=== PATIENT | female | born 1990 | race Caucasian/White ===

== ENCOUNTER 2016-07-15 11:36 | Emergency (ER) | payer BC, OTHER ==
[~2016-07-15] VITALS: Wt 89.0 kg
[2016-07-15] MEDS ORDERED: ONDANSETRON 4 MG INJ IV STA (13:36)
[2016-07-15] MEDS ORDERED: SOD CHLORIDE 0.9% 1,000 ML IV STA (13:36)
[2016-07-15] MEDS ORDERED: ACETAMINOPHEN 325 MG TAB PO STA (13:36)
--- NOTE | 2016-07-15 13:44 | ERD ---
ER Documentation Chief Complaint Date/Time DATE: 07/15/16 TIME: 13:40 Chief Complaint abd pain and diarrhea and nausea . no vag bleed 5 wks preg HPI Otherwise healthy 26-year-old female estimated at 8 weeks gestation presents to the emergency department with a 1 day history of gradually worsening 5 out of 10 burning abdominal pain with associated nausea, vomiting, and diarrhea since last night. Patient states she ate dinner around 7 PM and started experiencing nausea and abdominal pain around 11 PM. since that time she states she has vomited 4 times and has been unable to keep food down. Patient denies any vaginal bleeding, dysuria, flank pain, fever, chills, or vaginal discharge. ROS All systems reviewed and are negative except as per history of present illness. Allergies Allergies: Coded Allergies: No Known Drug Allergy (Verified Allergy, Unknown, 06/03/08) Physical Exam Vitals Vital Signs Date Time Temp Pulse Resp B/P Pulse Ox O2 Delivery O2 Flow Rate FiO2 07/15/16 11:45 98.8 76 20 138/77 100 Physical Exam Const: Well-developed, well-nourished, in no acute distress Head: Atraumatic Eyes: Normal Conjunctiva ENT: Normal External Ears, Nose and Mouth. Neck: Full range of motion..~ No meningismus. Resp: Clear to auscultation bilaterally Cardio: Regular rate and rhythm, no murmurs Abd: Mild diffuse tenderness to palpation of upper quadrant. Negative McBurney's point tenderness. abdomen soft, non non distended. Normal bowel sounds Skin: No petechiae or rashes Back: No midline or flank tenderness Ext: No cyanosis, or edema Neur: Awake and alert Psych: Normal Mood and Affect Result Diagram: 07/15/16 1353 07/15/16 1353 Results 24 hrs Laboratory Tests Test 07/15/16 13:45 07/15/16 13:53 Urine Color LT. YELLOW Urine Clarity CLEAR Urine pH 7.0 Urine Specific [place] 1.020 Urine Ketones NEGATIVE Urine Nitrite NEGATIVE Urine Bilirubin NEGATIVE Urine Urobilinogen 0.2 E.U./dL Urine Leukocyte Esterase 2+ Urine Microscopic RBC 0-2/HPF Urine Microscopic WBC 2-5/HPF Urine Squamous Epithelial Cells FEW Urine Bacteria FEW Urine Hemoglobin TRACE Urine Glucose NEGATIVE% Urine Total Protein NEGATIVE White Blood Count 9.310^3/ul Red Blood Count 4.4810^6/ul Hemoglobin 13.6g/dl Hematocrit 41.1% Mean Corpuscular Volume 91.7fl Mean Corpuscular Hemoglobin 30.4pg Mean Corpuscular Hemoglobin Concent 33.1g/dl Red Cell Distribution Width 12.7% Platelet Count 13920^3/UL Mean Platelet Volume 9.5fl Neutrophils % 61.9% Lymphocytes % 31.5% Monocytes % 5.8% Eosinophils % 0.3% Basophils % 0.3% Nucleated Red Blood Cells % 0.0/100WBC Neutrophils # 5.810^3/ul Lymphocytes # 2.910^3/ul Monocytes # 0.510^3/ul Eosinophils # 0.010^3/ul Basophils # 0.010^3/ul Nucleated Red Blood Cells # 0.010^3/ul Prothrombin Time 13.0Sec Prothrombin Time Ratio 1.0 INR International Normalized Ratio 0.98 Activated Partial Thromboplast Time 28.6Sec Sodium Level 137mmol/L Potassium Level 3.7mmol/L Chloride Level 102mmol/L Carbon Dioxide Level 26mmol/L Anion Gap 13 Blood Urea Nitrogen 5mg/dl Creatinine 0.52mg/dl Glucose Level 80mg/dl Calcium Level 9.3mg/dl Total Bilirubin 0.3mg/dl Direct Bilirubin 0.00mg/dl Indirect Bilirubin 0.3mg/dl Aspartate Amino Transf (AST/SGOT) 18IU/L Alanine Aminotransferase (ALT/SGPT) 18IU/L Alkaline Phosphatase 60IU/L Total Protein 7.7g/dl Albumin 4.3g/dl Globulin 3.40g/dl Albumin/Globulin Ratio 1.26 Lipase 71U/L Beta HCG, Quantitative 72801.0mIU/ml Current Medications Medications (Trade) Dose Ordered Sig/Jenifer Route PRN Reason Start Time Stop Time Status Last Admin Dose Admin Sodium Chloride (NS) 1,000 ml @ 1,000 mls/hr Q1H STAT IV 07/15/16 13:36 07/15/16 14:35 DC 07/15/16 13:55 Acetaminophen (Tylenol Tab) 650 mg ONCE STAT PO 07/15/16 13:36 07/15/16 13:40 DC 07/15/16 13:56 Ondansetron HCl (Zofran Inj) 4 mg ONCE STAT IV 07/15/16 13:36 07/15/16 13:40 DC 07/15/16 13:55 Procedures/MDM PROCEDURE: US OB. CLINICAL INDICATION: pelvic pain TECHNIQUE: Transabdominal views of the pelvis are available for review. COMPARISON: No prior studies are available for comparison. FINDINGS: There is a single intrauterine gestation with the crown-rump length measuring 1.4 cm and the gestational sac measures 2.9 cm, corresponding to a gestational age of 7 weeks and 6 days. The heart rate is noted at 168 bpm. The ovaries are normal in size and echogenicity. Normal Doppler flow is identified in both ovaries. The right ovary measures 3.2 x 2.0 x 2.0 cm. The left ovary measures 2.7 x 1.3 x 1.4 cm. There is no free fluid. RPTAT: AA IMPRESSION: Single live intrauterine with an estimated gestational age of 7 weeks and 6 days, based on ultrasound measurements. FIONA based on ultrasound measurements is 02/25/17. .Dwight Sweet MD, MD Date Time Electronically viewed and signed by .Dwight Sweet MD, on 07/15/2016 14: 37 .S/ CC: MARIELOS HOWELL PA-C Patient received a bolus of fluids as well as Zofran and Tylenol while in the emergency department and states improvement of symptoms. Vital signs were reviewed. Patient is afebrile. Patient is not hypoxic. CBC showed no evidence of systemic infection or severe anemia. BMP showed no evidence of electrolyte abnormalities, severe acidosis, alkalosis , renal failure, or liver disease. Lipase showed no evidence of acute pancreatitis. UA revealed evidence of 2+ leukocyte esterase and [place] bacteria[place] [address] Ultrasound revealed single live intrauterine estimated at 7 weeks. Clinical examination and laboratory testing revealed evidence of acute urinary tract infection. At this time I have low suspicion for acute cholecystitis, appendicitis, threatened , ovarian torsion, tubo-ovarian abscess, bowel obstruction. Based on patient's history of present illness and physical examination the decision was made to discharge. The patient was re-evaluated after ED treatment and stabilizing measures, and symptoms have improved. There is no evidence of life threatening injuries or illnesses at this time. On re-examination, patient resting in no distress, stable vital signs, reports feeling better and safe for discharge with outpatient follow up with PMD in 1-2 days. Patient given return precautions. Departure Diagnosis: Primary Impression: Abdominal pain Abdominal location: upper abdomen, unspecified Qualified Code: R10.10 - Pain of upper abdomen Additional Impression: Nausea & vomiting Vomiting type: unspecified Vomiting Intractability: non-intractable Qualified Code: R11.2 - Non-intractable vomiting with nausea, unspecified vomiting type MARIELOS HOWELL PA-C Jul 15, 2016 13:44
[2016-07-15 14:10] LABS: ADD SCAN DIFF NO
[2016-07-15 14:16] LABS: ADD UMIC YES; URINE BILIRUBIN (Dip) NEGATIVE (NEGATIVE); URINE BLOOD (Dip) TRACE (NEGATIVE); URINE COLOR LT. YELLOW (YELLOW); URINE GLUCOSE (Dip) NEGATIVE (NEGATIVE); URINE KETONES (Dip) NEGATIVE (NEGATIVE); URINE LEUKOCYTE ESTERASE (Dip) 2+ (NEGATIVE); URINE NITRITE (Dip) NEGATIVE (NEGATIVE); URINE TOTAL PROTEIN (Dip) NEGATIVE (NEGATIVE); URINE UROBILINOGEN (Dip) 0.2 E.U./dL (0.1-1.0)
[2016-07-15 14:21] LABS: BACTERIA,URINE FEW; SQUAMOUS EPITHELIAL CELL,UR FEW; URINE RBCS 0-2 /HPF (0)
[2016-07-15 14:24] LABS: ALBUMIN 4.3 g/dl (3.3-4.9); INR 0.98; POTASSIUM 3.7 mmol/L (3.5-5.1)
[2016-07-15 14:25] LABS: PARTIAL THROMBOPLASTIN TIME 28.6 Sec (25.0-35.0)
[2016-07-15 14:27] LABS: BILIRUBIN,INDIRECT 0.3 mg/dl (0-1.1); BILIRUBIN,TOTAL 0.3 mg/dl (0.2-1.3); CALCIUM 9.3 mg/dl (8.4-10.2); CREATININE 0.52 mg/dl (0.44-1.00)
--- NOTE | 2016-07-15 14:37 | RADRPT ---
PROCEDURE: US OB. CLINICAL INDICATION: pelvic pain TECHNIQUE: Transabdominal views of the pelvis are available for review. COMPARISON: No prior studies are available for comparison. FINDINGS: There is a single intrauterine gestation with the crown-rump length measuring 1.4 cm and the gestat ional sac measures 2.9 cm, corresponding to a gestational age of 7 weeks and 6 days. The heart rate is noted at 168 bpm. The ovaries are normal in size and echogenicity. Normal Doppler flow is identified in both ovaries. The right ovary measures 3.2 x 2.0 x 2.0 cm. The left ovary measures 2.7 x 1.3 x 1.4 cm. There is no free fluid. RPTAT: AA IMPRESSION: Single live intrauterine with an estimated gestational age of 7 weeks and 6 days, based on ultrasound measurements. FIONA based on ultrasound measurements is 02/25/17. .Dwight Sweet MD, MD Date Time Electronically viewed and signed by .Dwight Sweet MD, on 07/15/2016 14:37 .S/
[2016-07-15 14:54] LABS: BASOPHILS % 0.3 % (0.0-2.0); EOSINOPHILS % 0.3 % (0.0-7.0); HEMATOCRIT 41.1 % (37.0-47.0); HEMOGLOBIN 13.6 g/dl (12.0-16.0); LYMPHOCYTES # 2.9 10^3/ul (0.8-2.9); LYMPHOCYTES % 31.5 % (15.0-51.0); MEAN CORPUSCULAR HEMOGLOBIN 30.4 pg (29.0-33.0); MEAN CORPUSCULAR HGB CONC 33.1 g/dl (32.0-37.0); MEAN CORPUSCULAR VOLUME 91.7 fl (82.0-101.0); MEAN PLATELET VOLUME 9.5 fl (7.4-10.4); MONOCYTE # 0.5 10^3/ul (0.3-0.9); MONOCYTES % 5.8 % (0.0-11.0); NEUTROPHIL # 5.8 10^3/ul (1.6-7.5); NEUTROPHILS % 61.9 % (39.0-77.0); PLATELET COUNT 303 10^3/UL (140-415); RED BLOOD COUNT 4.48 10^6/ul (4.20-5.40); RED CELL DISTRIBUTION WIDTH 12.7 % (11.5-14.5); WHITE BLOOD COUNT 9.3 10^3/ul (4.8-10.8)
[2016-07-15 15:06] LABS: ALBUMIN/GLOBULIN RATIO 1.26
[2016-07-15 15:25] LABS: TOTAL PROTEIN 7.7 g/dl (6.1-8.1)
[2016-07-15] MEDS ORDERED: ELEC100080 PO (15:59)
[2016-07-15] MEDS ORDERED: CEPH-443 PO (15:59)
[2016-07-15] MEDS ORDERED: ONDA4TAB14 PO (15:59)
== END 2016-07-15 16:20 | disposition home or self-care (01) ==
LOC: FTE 11:36
DX: O26.891 Other specified pregnancy related conditions, first trimester (principal); R10.10 Upper abdominal pain, unspecified; O21.9 Vomiting of pregnancy, unspecified; R10.2 Pelvic and perineal pain; Z3A.01 Less than 8 weeks gestation of pregnancy
CPT/HCPCS: 36415; 76801; 80053; 81001; 81003; 83690; 84702; 85025; 85610; 85730; 96374; J2405; J7030; Z7502; Z7610

== ENCOUNTER 2016-12-03 00:20 | Outpatient (CLI) | payer MEDICAID ==
[~2016-12-03] VITALS: Ht 165.1 cm; Wt 96.6 kg
[~2016-12-03 00:20] MED LIST: CEPH-443 PO; ELEC100080 PO; ONDA4TAB14 PO
[2016-12-03 01:17] VITALS: BP 99/58; PULSE 77; RESP 16
[2016-12-03] MEDS ORDERED: ACETAMINOPHEN 500 MG TAB PO STA (01:29)
--- NOTE | 2016-12-03 02:53 | RADRPT ---
PROCEDURE: US OB biophysical profile. CLINICAL INDICATION: labor TECHNIQUE: Multiple sonographic images of the pelvis were obtained. The images were reviewed on a PACS workstation. COMPARISON: No pertinent prior examinations were submitted for comparison. FINDINGS: There is a single viable intrauterine gestation. Cardiac activity is present with 159 beats per min [place]. There is a cephalic presentation. The placenta is posterior, grade 1 appearance. There is a normal amount of amniotic fluid with an KORI = 12.8 cm. The cervix is long and closed, measuring up to 5.9 cm. Biophysical profile: movement 2/2 tone 2/2. breathing 2/2 KORI 2/2 Total 11/23 IMPRESSION: Normal biophysical profile. RPTAT: HIKT . .Aston Nugent MD, Date Time Electronically viewed and signed by .Aston Nugent MD, on 12/03/2016 02:52 .T/
[2016-12-03 03:12] LABS: BASOPHILS % 0.4 % (0.0-2.0); EOSINOPHILS # 0.1 10^3/ul (0.0-0.5); EOSINOPHILS % 0.7 % (0.0-7.0); HEMATOCRIT 30.8 % (37.0-47.0); HEMOGLOBIN 10.4 g/dl (12.0-16.0); LYMPHOCYTES # 1.5 10^3/ul (0.8-2.9); LYMPHOCYTES % 20.4 % (15.0-51.0); MEAN CORPUSCULAR HEMOGLOBIN 30.7 pg (29.0-33.0); MEAN CORPUSCULAR HGB CONC 33.8 g/dl (32.0-37.0); MEAN CORPUSCULAR VOLUME 90.9 fl (82.0-101.0); MEAN PLATELET VOLUME 9.2 fl (7.4-10.4); MONOCYTE # 0.9 10^3/ul (0.3-0.9); MONOCYTES % 12.5 % (0.0-11.0); NEUTROPHILS % 65.2 % (39.0-77.0); PLATELET COUNT 234 10^3/UL (140-415); RED BLOOD COUNT 3.39 10^6/ul (4.20-5.40); RED CELL DISTRIBUTION WIDTH 13.9 % (11.5-14.5); WHITE BLOOD COUNT 7.4 10^3/ul (4.8-10.8)
[2016-12-03 03:29] LABS: ALBUMIN 3.5 g/dl (3.3-4.9); ALBUMIN/GLOBULIN RATIO 1.2; BILIRUBIN,INDIRECT 0.2 mg/dl (0-1.1); BILIRUBIN,TOTAL 0.2 mg/dl (0.2-1.3); CALCIUM 8.8 mg/dl (8.4-10.2); CREATININE 0.45 mg/dl (0.44-1.00); POTASSIUM 3.3 mmol/L (3.5-5.1); TOTAL PROTEIN 6.4 g/dl (6.1-8.1)
[2016-12-03 03:39] LABS: ADD UMIC YES; UR ASCORBIC ACID NEGATIVE (NEGATIVE); UR BILIRUBIN (Dip) NEGATIVE (NEGATIVE); UR BLOOD (Dip) NEGATIVE (NEGATIVE); UR CLARITY CLEAR (CLEAR); UR COLOR YELLOW (YELLOW); UR GLUCOSE (Dip) NEGATIVE (NEGATIVE); UR KETONES (Dip) 1+ mg/dL (NEGATIVE); UR LEUKOCYTE ESTERASE (Dip) 1+ Leu/ul (NEGATIVE); UR NITRITE (Dip) NEGATIVE (NEGATIVE); UR RBC 0 /HPF (0-5); UR SQUAMOUS EPITHELIAL CELL FEW /HPF (FEW); UR TOTAL PROTEIN (Dip) NEGATIVE (NEGATIVE); UR UROBILINOGEN (Dip) NEGATIVE (NEGATIVE)
--- NOTE | 2016-12-03 06:16 | PN ---
Triage Information Date/Time 12/03/16 Reason for visit: Abd/pelvic pain Weeks of Gestation 30w /Para Diabetes: none Hypertention: none Additional information headahe and bodyahe denies any [place] vomiting\ no urinary sx no coughing or SOB Objective Vital Signs Date Time Temp Pulse Resp B/P Pulse Ox O2 Delivery O2 Flow Rate FiO2 12/03/16 01:17 98.8 77 16 99/58 Room Air Heart Rate: 150's Contractions: None Exam CVA neg for tenderness abdomen no tenderness Results/Medications Result Diagram: 12/03/16 0234 12/03/16 0234 Results 24 hrs Laboratory Tests Test 12/03/16 01:00 12/03/16 02:34 Urine Color YELLOW Urine Clarity CLEAR Urine pH 7.0 Urine Specific [place] 1.010 Urine Ketones 1+ H Urine Nitrite NEGATIVE Urine Bilirubin NEGATIVE Urine Urobilinogen NEGATIVE Urine Leukocyte Esterase 1+ H Urine Microscopic RBC 0 Urine Microscopic WBC 2 Urine Squamous Epithelial Cells FEW Urine Hemoglobin NEGATIVE Urine Glucose NEGATIVE Urine Total Protein NEGATIVE White Blood Count 7.4 # Red Blood Count 3.39 #L Hemoglobin 10.4 #L Hematocrit 30.8 #L Mean Corpuscular Volume 90.9 Mean Corpuscular Hemoglobin 30.7 Mean Corpuscular Hemoglobin Concent 33.8 Red Cell Distribution Width 13.9 Platelet Count 234 # Mean Platelet Volume 9.2 Neutrophils % 65.2 Lymphocytes % 20.4 Monocytes % 12.5 H Eosinophils % 0.7 Basophils % 0.4 Nucleated Red Blood Cells % 0.0 Neutrophils # (Manual) 5 Lymphocytes # 1.5 Monocytes # 0.9 Eosinophils # 0.1 Basophils # 0.0 Nucleated Red Blood Cells # 0.0 Sodium Level 136 Potassium Level 3.3 L Chloride Level 104 Carbon Dioxide Level 22 Anion Gap 13 Blood Urea Nitrogen 3 L Creatinine 0.45 Glucose Level 79 Calcium Level 8.8 Total Bilirubin 0.2 Direct Bilirubin 0.00 Indirect Bilirubin 0.2 Aspartate Amino Transf (AST/SGOT) 41 Alanine Aminotransferase (ALT/SGPT) 37 Alkaline Phosphatase 59 Total Protein 6.4 Albumin 3.5 Globulin 2.90 Albumin/Globulin Ratio 1.20 Medications tylenol 1000mg Imaging Results BPP 11/23 KORI 12.8 CVL 5.9 Disposition: Discharge Assessment/Plan A IUP 30w with headache SX resolved P discharge home f/u at [facility] BRANDIN CLAY MD Dec 03, 2016 06:16
== END 2016-12-03 05:45 | disposition home or self-care (01) ==
LOC: L-D 00:20 → OBT 00:20
PROVIDERS: ATTEND Obstetrics & Gynecology
DX: O26.893 Other specified pregnancy related conditions, third trimester (principal); Z3A.30 30 weeks gestation of pregnancy; R10.2 Pelvic and perineal pain
CPT/HCPCS: 76817; 76818; 80053; 81001; 85025; Z7610